=== PATIENT | female | born 1975 | race Caucasian/White ===

== ENCOUNTER 2021-04-26 12:23 | Emergency (ER) | payer OTHER, SELFPAY ==
[2021-04-26 12:25] VITALS: BP 133/86; PULSE 83; RESP 20; TEMP 37; O2SAT 94
--- NOTE | 2021-04-26 12:50 | ED_ITS ---
HPI - Female Genitourinary General Chief complaint: Urogenital-Female Stated complaint: kidney or bladder infection/pain Source: patient and RN notes reviewed Mode of arrival: ambulatory Limitations: no limitations History of Present Illness MD elicited complaint: UTI and back pain Onset (ago): day(s) (4) Severity: moderate Quality of pain: dull and aching Consistency: intermittent Vaginal discharge: none Vaginal bleeding: none Urinary symptoms: Urgency and Frequency Exacerbating factors: none Relieving factors: none Associated symptoms: back pain Patient : No Related Data Allergies Allergy/AdvReac Type Severity Reaction Status Date / Time No Known Allergies Allergy Verified 04/26/21 13:27 Review of Systems Review of Systems: All systems reviewed & are unremarkable except as noted in HPI and below Constitutional: Constitutional: Denies chills Gastrointestinal: Gastrointestinal: Denies nausea and Denies vomiting PMFSH Past Medical History Medical History (Updated 04/26/21 @ 13:20 by Tom Kirby MD) Hyperlipidemia Surgical History Surgical History (Updated 04/26/21 @ 13:20 by Tom Kirby MD) No pertinent past surgical history Social History Social History (Updated 04/26/21 @ 13:21 by Tom Kirby MD) Smoking packs per day: 0.5 Smoking cigarettes per day: 10.0 Smoking status: Current every day smoker Tobacco type: cigarettes Alcohol intake: current Alcohol use details: occasional Substance use: never Exam Const: General: healthy appearing, no acute distress and alert Nutritional Appearance: well nourished and obese centrally obese Orientation/consciousness: patient oriented x3 HENMT: Head: normal to inspection Ears: external ears normal Eyes: General: appearance normal, both eyes and all related structures Conjunctivae: conjunctivae normal Pupils: Equal, round and reactive pupils present EOM: EOMs intact bilaterally Neck: Neck: normal visual inspection Resp: Effort & Inspection: normal respiratory effort Auscultation: clear to auscultation bilaterally Cardio: Rate: regular rate Rhythm: regular rhythm GI: GI Palp: Yes Soft to palpation and No Tenderness to palpation present (GI) Auscultation: normal bowel sounds Back/Spine/Pelvis: Cervical Spine: cervical ROM normal Thoracic/Lumbar Spine: thoraco-lumbar ROM normal Skin: General skin exam: normal color Rashes: no rashes Neuro: General: patient oriented x3, moves all extremities, no meningeal signs and no focal motor deficits Speech: normal speech Gait exam (Neuro): Normal gait present Discharge Plan Discharge Clinical Impression: Urinary tract infection Qualifiers: Urinary tract infection type: acute cystitis Hematuria presence: without he maturia Qualified Code(s): N30.00 - Acute cystitis without hematuria Patient Disposition: Home, Self-Care Condition: Stable Instructions: Urinary Tract Infection in Women (ED) Additional Instructions: drink plenty of fluids. Can use azo [id number] if desired Prescriptions: New sulfamethoxazole-trimethoprim [Bactrim DS] 800-160 mg tablet 1 tablet PO Q12H 5 Days Qty: 10 RF: 0 Follow-up/Referrals: Opal,RODRÍGUEZ Bateman [Primary Care Provider] - Time of Disposition: 13:18
[2021-04-26 12:56] LABS: Add Urine Microscopic? YES; Appearance Urine Clear (Clear); Bilirubin Urine Negative (Negative); Blood Urine Negative (Negative); Color Urine Light Yellow (Yellow); Glucose Urine UA Negative (Negative); Ketones Urine Negative (Negative); Leukocyte Esterase Ur Trace LEU/UL (Negative); Nitrate Urine Negative (Negative); Protein Urine Negative (Negative); Specific Grav Ur 1.015 (1.010-1.020); Urobilinogen Urine 0.2 mg/dL (0.2-1.0)
[2021-04-26 13:05] LABS: Bacteria Urine 1+ /hpf; RBC Urine 0-2 /hpf (0-2); Squamous Epithelial Cell Urine None seen /hpf (Few)
[2021-04-26 13:29] VITALS: BP 133/83; PULSE 76; RESP 20; TEMP 37.1; O2SAT 98
== END 2021-04-26 13:30 | disposition home or self-care (01) ==
PROVIDERS: Emergency Provider Emergency Medicine; PCP Physician Assistant
DX: N30.00 Acute cystitis without hematuria (principal)
CPT/HCPCS: 81001; 99283

== ENCOUNTER 2022-03-19 14:29 | Emergency (ER) | payer OTHER, SELFPAY ==
[2022-03-19 16:00] VITALS: BP 125/73; PULSE 73; RESP 18; TEMP 36.3; O2SAT 99
--- NOTE | 2022-03-19 16:04 | ED.GENADULT ---
HPI - General Adult General Chief complaint: Urogenital-Female Stated complaint: back pain Time Seen by Provider: 03/19/22 16:02 History of Present Illness HPI narrative: 46-year-old white female presents to the emergency room complaining of possible urinary tract infection because she has some bilateral lower back pain for which she is taking Tylenol. Denies any dysuria frequency hematuria. She said the last time she had a bladder infection she had back pain. Denies any fever or other pains diarrhea problems coughing shortness of breath chest pain extremity pain rash or itching. Patient says she has been helping move furniture and other things the last couple weeks since this started this past week. Related Data Allergies Allergy/AdvReac Type Severity Reaction Status Date / Time No Known Allergies Allergy Verified 04/26/21 13:27 Review of Systems Review of Systems: All systems reviewed & are unremarkable except as noted in HPI and below Constitutional: Constitutional: Reports no additional constitutional complaints Eyes: Eyes: Reports no additional eye complaints ENT: Reports system reviewed and no additional complaints, except as documented Cardiovascular: Cardiovascular: Reports no additional cardiovascular complaints Respiratory: Respiratory: Reports no additional respiratory complaints Gastrointestinal: Gastrointestinal: Reports no additional gastrointestinal complaints Genitourinary: Genitourinary: Reports no additional female genitourinary complaints Musculoskeletal: Musculoskeletal: Reports no additional musculoskeletal complaints, Reports as per HPI and Reports back pain Integumentary/Breasts: Skin/Breast: Reports system reviewed and no additional complaints, except as docu [facility] Past Medical History Medical History Hyperlipidemia Surgical History Surgical History No pertinent past surgical history Social History Social History Smoking packs per day: 0.5 Smoking cigarettes per day: 10.0 Smoking status: Current every day smoker Tobacco type: cigarettes Alcohol intake: current Alcohol use details: occasional Substance use: never Exam Narrative: White female no apparent distress head is normal cephalic atraumatic. Vital signs were normal. Oropharynx clear with moist mucous membranes. Eyes conjunctiva are pink sclera nonicteric. Neck is supple no lymphadenopathy. Lungs are clear heart is regular rate rhythm without murmurs gallops rubs. Abdomen obese positive bowel sounds soft nontender no hepatosplenomegaly or masses. Extremities no cyanosis clubbing or edema back was nontender negative straight leg raise neurological motor and sensory grossly intact. Course Course Emergency Course: Urinalysis was normal patient is wishing discharge impression and evaluation was discussed . Plan was discussed and agreed upon by patient. Medical Decision Making Lab Data Labs: Lab Results 03/19/22 Range/Units 16:03 Urine Color Light yellow (Yellow) Urine Appearance Clear (Clear) Urine pH 6.0 (5.0-8.0) Ur Specific [place] 1.010 (1.010-1.020) Urine Protein Negative (Negative) Urine Glucose (UA) Negative (Negative) Urine Ketones Negative (Negative) Ur Blood (Man) Negative (Negative) Urine Nitrate Negative (Negative) Urine Bilirubin Negative (Negative) Urine Urobilinogen 0.2 (0.2-1.0) mg/dL Ur Leukocyte Esterase Negative (Negative) Discharge Plan Discharge Clinical Impression: Acute low back pain Patient Disposition: Home, Self-Care Condition: Stable Instructions: Acute Low Back Pain (ED) Additional Instructions: Tylenol 1000 mg 4 times a day and or ibuprofen 200 m tablets 3 times a day as needed for pain follow-up with private medical
[2022-03-19 16:11] LABS: Appearance Urine Clear (Clear); Bilirubin Urine Negative (Negative); Blood Urine Negative (Negative); Glucose Urine UA Negative (Negative); Ketones Urine Negative (Negative); Leukocyte Esterase Ur Negative (Negative); Nitrate Urine Negative (Negative); Protein Urine Negative (Negative); Urobilinogen Urine 0.2 mg/dL (0.2-1.0)
[2022-03-19 16:16] LABS: Add Urine Microscopic? NO; Color Urine Light Yellow (Yellow)
[2022-03-19 18:58] VITALS: BP 126/76; PULSE 72; RESP 18; TEMP 36.9; O2SAT 97
== END 2022-03-19 19:01 | disposition home or self-care (01) ==
PROVIDERS: Emergency Provider Emergency Medicine; PCP Physician Assistant
DX: M54.50 Low back pain, unspecified (principal)
CPT/HCPCS: 81003; 87086; 87088; 99283